=== PATIENT | male | born 1995 | race Caucasian/White ===

== ENCOUNTER 2020-03-10 08:59 | Emergency (ER) | payer OTHER ==
[~2020-03-10] VITALS: Ht 180.3 cm; Wt 72.8 kg
[2020-03-10] MEDS ORDERED: REMERON15 MG PO (09:15)
[2020-03-10] MEDS ORDERED: LEVOTHYROXINE50 MCG PO (09:15)
[2020-03-10] MEDS ORDERED: MIRALAX17 GM PO (09:16)
== END 2020-03-10 12:48 | disposition home or self-care (01) ==
LOC: ED 08:59
DX: E86.0 Dehydration (principal); F32.9 Major depressive disorder, single episode, unspecified; Z88.0 Allergy status to penicillin; Z79.899 Other long term (current) drug therapy
CPT/HCPCS: 80053; 81001; 84443; 85025; 96360; 99284-25; J7030